=== PATIENT | female | born 1985 | race Two or more races ===

== ENCOUNTER 2020-06-06 13:26 | Outpatient (REF) | payer MEDICAID, SELFPAY | END 2020-06-06 13:27 | disposition home or self-care (01) | LOC: HO.LAB 13:26 | PROVIDERS: Visit Provider Internal Medicine | DX: Z20.828 Contact with and (suspected) exposure to other viral communicable diseases (principal) | CPT/HCPCS: U0003 ==

== ENCOUNTER 2020-08-05 11:47 | Emergency (ER) | payer MEDICAID, SELFPAY ==
[2020-08-05 12:09] VITALS: BP 116/73; PULSE 78; RESP 16; TEMP 36.8; O2SAT 97; BMI 60.2
--- NOTE | 2020-08-05 12:42 | ED_ITS ---
HPI - General Adult General Chief complaint: General Medical Stated complaint: headache, low extremity pain Time Seen by Provider: 08/05/20 12:41 History of Present Illness HPI narrative: Patient complains of body aches, mild headache, mild cough, mild runny nose mild fatigue for past 2 days and lives in a household with a family member who was positive for COVID, no shortness of breath no vomiting Related Data Home Medications Medication Instructions Recorded Confirmed No Known Home Meds 08/05/20 08/05/20 Previous Rx's Medication Instructions Recorded ibuprofen 600 mg PO Q6H PRN #20 tab 08/05/20 Allergies Allergy/AdvReac Type Severity Reaction Status Date / Time No Known Allergies Allergy Unverified 04/24/20 19:53 [No Known Allergies*] Review of Systems Review of Systems: Positive for headache body aches cough runny nose fatigue Negatives are weakness dizziness confusion neck pain, no chest pain no shortness of breath, no calf pain or swelling, no leg swelling, no urinary symptoms, no abdominal pain no nausea no vomiting no diarrhea, no skin rash Yes all other systems are reviewed and are negative [facility] Past Medical History Source: nursing notes reviewed Medical History (Updated 08/05/20 @ 12:49 by BAKARI Kilgore) No known health problems Social History Social History Advance Directives: No Advance Directives Information Provided: No Physical Exam Vital Signs: Vital Signs: Last Vital Signs Temp 98.2 F 08/05/20 12:09 Pulse 78 08/05/20 12:09 Resp 16 08/05/20 12:09 BP 116/73 08/05/20 12:09 Pulse Ox 97 08/05/20 12:09 Body Mass Index 60.2 General appearance no acute distress The neck is supple The chest is clear to auscultation bilaterally with full symmetric equal breath sounds, no respiratory distress The heart rate and rhythm regular, no murmurs The abdomen is soft and nontender Extremities there is no calf swelling or tenderness, there is no edema Skin no rash Neuro no focal deficit Course Course Course Narrative: COVID testing was done in well-appearing patient who is discharged home with warnings to wear mask as her symptoms are concerning for COVID Discharge Plan Discharge Clinical Impression: Acute viral syndrome Patient Disposition: Home, Self-Care Additional Instructions: Your symptoms are concerning for COVID infections so wear a mask and keep a distance from people We will call you with test results, but a negative test results does not guarantee you do not have COVID so if you have symptoms you still must assume you have COVID and wear the mask and keep a distance Return any time any worse condition or concerns Prescriptions: New ibuprofen 600 mg tablet 600 mg PO Q6H PRN (Reason: pain) Qty: 20 RF: 0 No Action No Known Home Meds RF: 0 Stand Alone Forms: Work/School Release Interventions: ED Discharge Assessment Last Done: 08/05/20 12:52
== END 2020-08-05 13:04 | disposition home or self-care (01) ==
PROVIDERS: Physician Assistant Medical; Emergency Provider Emergency Medicine Emergency Medical Services
DX: B34.9 Viral infection, unspecified (principal); R51.9 Headache, unspecified; M79.10 Myalgia, unspecified site; Z20.828 Contact with and (suspected) exposure to other viral communicable diseases
CPT/HCPCS: 99283; U0003

== ENCOUNTER 2020-08-27 11:00 | Outpatient (REF) | payer MEDICAID, SELFPAY | END 2020-08-27 11:01 | disposition home or self-care (01) | LOC: HO.LAB 11:00 | PROVIDERS: Visit Provider Internal Medicine | DX: Z20.822 Contact with and (suspected) exposure to COVID-19 (principal) | CPT/HCPCS: 36415; C9803; U0003 ==

== ENCOUNTER 2021-01-20 09:08 | Emergency (ER) | payer MEDICAID, SELFPAY ==
[2021-01-20 09:40] VITALS: PULSE 97; RESP 18; TEMP 36.6; O2SAT 99; BMI 22.4
[2021-01-20 10:01] VITALS: BP 115/72; PULSE 79; TEMP 36.8; O2SAT 98
[2021-01-20] MEDS: 0.9 % Sodium Chloride 1,000 ML 999 ML IVCONT ×2 (10:32→14:22)
[2021-01-20] MEDS: ondansetron HCL 4 MG/2 ML VIAL IVPUSH (10:32)
[2021-01-20 10:34] LABS: MANUAL DIFF FLAG NO
[2021-01-20 10:35] LABS: White Blood Count 3.6 X10*3/uL (4.8-10.8)
[2021-01-20 10:36] LABS: Basophils Percent Auto 0.6 % (0-2); Hematocrit 37.5 % (37-47); Hemoglobin 12.7 g/dl (12.0-16.0); Lymphocytes Absolute Auto 0.7 X10*3/uL (1.2-4.9); Lymphocytes Percent Auto 18.2 % (20-40); Mean Corpuscular HGB Conc 33.9 g/dl (31.0-35.0); Mean Corpuscular Hemoglobin 30.5 pg (27.0-33.0); Mean Corpuscular Volume 90.1 fL (80-98); Mean Platelet Volume 11.1 fL (9.4-12.3); Monocytes Absolute Auto 0.4 X10*3/uL (0.1-1.2); Monocytes Percent Auto 9.7 % (2-11); Neutrophils Absolute Auto 2.6 X10*3/uL (2.0-8.3); Neutrophils Percent Auto 71.5 % (45-73); Platelet Count 199 X10*3/uL (160-400); Red Blood Count 4.16 X10*6/uL (4.20-5.50); Red Cell Distribution Width 13.2 % (11.0-16.0)
--- NOTE | 2021-01-20 10:42 | ED_ITS ---
HPI - Abdominal Pain General Chief Complaint: Abdominal Pain <BAKARI Guerrero - Last Filed: 01/20/21 15:26> Stated Complaint: Abdominal pain vomiting <BAKARI Guerrero - Last Filed: 01/20/21 15:26> Time Seen by Provider: 01/20/21 10:13 <BAKARI Guerrero Last Filed: 01/20/21 15:26> Source: patient <BAKARI Guerrero Last Filed: 01/20/21 15:26> Mode of arrival: ambulatory <BAKARI Guerrero Last Filed: 01/20/21 15:26> Limitations: no limitations <BAKARI Guerrero Last Filed: 01/20/21 15:26> History of Present Illness HPI narrative: 35 y/o otherwise healthy female presents to the ER with epigastric pain along with nausea and vomiting for the last 7 days. Her symptoms started after a night of heavy drinking last week. She has been vomiting since and cannot keep anything down. She states the pain is in her epigastric area and is burning in nature. It comes and goes and worse with vomiting. She last tried to eat yesterday and everything came up. She denies chance of . She denies diarrhea, constipation, fever or chills. She has had no sick contacts. No SOB or chest pain. No vaginal bleeding or discharge. <BAKARI Guerrero - Last Filed: 01/20/21 15:26> MD elicited complaint: abdominal pain and other (N/V) <BAKARI Guerrero Last Filed: 01/20/21 15:26> Pertinent past history: none <BAKARI Guerrero Last Filed: 01/20/21 15:26> Onset (ago): day(s) (6) <BAKARI Guerrero Last Filed: 01/20/21 15:26> Pain Consistency: intermittent <BAKARI Guerrero Last Filed: 01/20/21 15:26> Location: epigastric <BAKARI Guerrero Last Filed: 01/20/21 15:26> Severity: moderate <BAKARI Guerrero Last Filed: 01/20/21 15:26> Quality: dull and burning <BAKARI Guerrero Last Filed: 01/20/21 15:26> Radiation: none <BAKARI Guerrero Last Filed: 01/20/21 15:26> Migration to: no migration <BAKARI Guerrero Last Filed: 01/20/21 15:26> Exacerbating factors: eating <BAKARI Guerrero Last Filed: 01/20/21 15:26> Relieving factors: vomiting <BAKARI Guerrero Last Filed: 01/20/21 15:26> Associated symptoms: nausea <BAKARI Guerrero Last Filed: 01/20/21 15:26> Related Data Home Medications: Previous Rx's Medication Instructions Recorded ibuprofen 600 mg PO Q6H PRN #20 tab 08/05/20 ondansetron 4 mg PO TID PRN #8 tab 01/20/21 <BAKARI Guerrero Last Filed: 01/20/21 15:26> Allergies/Adverse Reactions: Allergies Allergy/AdvReac Type Severity Reaction Status Date / Time No Known Allergies Allergy Unverified 04/24/20 19:53 [No Known Allergies*] <BAKARI Guerrero Last Filed: 01/20/21 15:26> Review of Systems Review of Systems Constitutional: No Fever, No Chills ENT/Mouth: No sore throat, No Rhinorrhea, No Swallowing Difficulty Cardiovascular: No Chest Pain, No SOB, No Orthopnea, No Edema Respiratory: No Cough, No Sputum, No Wheezing, No dyspnea Gastrointestinal: + Nausea, + Vomiting, No Diarrhea, + abdominal Pain, No Hematochezia, No Melena Genitourinary: No Dysuria, No Urinary Frequency, No Hematuria Musculoskeletal: No joint pain, No Myalgias Skin: No Skin Lesions, No rash Neuro: + Weakness, No Numbness, No Dizziness, + Headache Psych: No Anxiety/Panic, No Depression Heme/Lymph: No Bruising, No Lymphadenopathy Endocrine: No Polyuria, No Polydipsia <BAKARI Guerrero Last Filed: 01/20/21 15:26> Physical Exam Vital Signs: Vital Signs: Last Vital Signs Temp 98.3 F 01/20/21 10:01 Pulse 88 01/20/21 14:26 Resp 18 01/20/21 09:40 BP 113/68 01/20/21 14:26 Pulse Ox 99 01/20/21 14:26 Body Mass Index 22.4 Appearance: Alert. Oriented X3. No acute distress. Eyes: Pupils equal, round and reactive to light. ENT: Pharynx normal. Neck: Normal inspection. Neck supple. CVS: Normal heart rate and rhythm. Pulses normal. Respiratory: No respiratory distress. Breath sounds normal. Abdomen: Soft with mild epigsatric tenderness, nondistended. +BS x4 Skin: Skin warm and dry. Normal skin color. Normal skin turgor. No rashes. Extremities: No lower extremity edema. Neuro: Oriented X 3. No motor deficit. No sensory deficit. <BAKARI Guerrero - Last Filed: 01/20/21 15:26> Vital Signs: Last Vital Signs Temp 98.3 F 01/20/21 10:01 Pulse 88 01/20/21 14:26 Resp 18 01/20/21 09:40 BP 113/68 01/20/21 14:26 Pulse Ox 99 01/20/21 14:26 Body Mass Index 22.4 <Rajendra Hopkins MD - Last Filed: 02/28/21 08:45> Course Course Course Narrative: 35 y/o female presenting with N/V x1 week with epigastric burning pain. Will get lab workup and test. IVF and Zofran ordered. Patieng appears well, non-toxic. VS are normal. <BAKARI Guerrero - Last Filed: 01/20/21 15:26> I have reviewed the chart <Rajendra Hopkins MD - Last Filed: 02/28/21 08:45> Reevaluation(s) Reevaluation #1: Labs are unremarkable. No leukocytosis, no electrolyte abnormality. COVID negative. Feels better with IVF and Zofran. Given PO trial. <BAKARI Guerrero - Last Filed: 01/20/21 15:26> Reevaluation #2: Patient reports vomiting after she ate a cracker. Additional IVF and Reglan ordered. Will reassess. <BAKARI Guerrero - Last Filed: 01/20/21 15:26> Reevaluation #3: Utox + for marijuana which is likely contributing to persistent vomiting. Feels much better after reglan. She is stable for d/c home. Counseled on stopping smoking marijuana. <BAKARI Guerrero - Last Filed: 01/20/21 15:26> MDM - Abdominal Pain Lab Data Result diagrams: : 01/20/21 10:29 01/20/21 10:29 <BAKARI Guerrero - Last Filed: 01/20/21 15:26> Labs: Lab Results 01/20/21 01/20/21 01/20/21 Range/Units 10:29 10:29 10:29 WBC 3.6 L (4.8-10.8) X10*3/uL RBC 4.16 L (4.20-5.50) X10*6/uL Hgb 12.7 (12.0-16.0) g/dl Hct 37.5 (37-47) % MCV 90.1 (80-98) fL MCH 30.5 (27.0-33.0) pg MCHC 33.9 (31.0-35.0) g/dl RDW 13.2 (11.0-16.0) % Plt Count 199 (160-400) X10*3/uL MPV 11.1 (9.4-12.3) fL Immature Gran % (Auto) 0.0 (0.0-0.4) % Neut % (Auto) 71.5 (45-73) % Lymph % (Auto) 18.2 L (20-40) % [place] % (Auto) 9.7 (2-11) % Eos % (Auto) 0.0 (0-4) % Baso % (Auto) 0.6 (0-2) % Lymph # (Auto) 0.7 L (1.2-4.9) X10*3/uL [place] # (Auto) 0.4 (0.1-1.2) X10*3/uL Eos # (Auto) 0.0 (0.0-0.4) X10*3/uL Baso # (Auto) 0.0 (0.0-0.2) X10*3/uL Abs Immat Gran (auto) 0.00 (0.00-0.03) X10*3/uL Absolute Neuts (auto) 2.6 (2.0-8.3) X10*3/uL Absolute Nucleated RBC 0.000 (0.0-0.012) X10*3/uL Nucleated RBC % (auto) 0.0 (0.0-0.2) /100WBC Sodium 137 (135-145) mmol/L Potassium 3.7 (3.3-5.1) mmol/L Chloride 102 (96-108) mmol/L Carbon Dioxide 24 (22-29) mmol/L Anion Gap 15 (12-20) BUN 9 (9-16) mg/dL Creatinine 0.72 (0.5-1.4) mg/dL Estim Creat Clear Calc 76.8 Estimated GFR > 60 Random Glucose 92 (60-115) mg/dL Calcium 9.2 (8.4-10.2) mg/dL Magnesium 1.8 (1.6-2.6) mg/dL Total Bilirubin 0.7 (0.0-1.0) mg/dL Direct Bilirubin 0.2 (0.0-0.5) mg/dL AST 14 (5-31) U/L ALT 16 (0-31) U/L Alkaline Phosphatase 43 (39-117) U/L Total Protein 6.9 (6.5-8.0) g/dL Albumin 4.3 (3.5-5.0) g/dL Lipase 11 (8-78) U/L Beta HCG, Quant < 2 mIU/mL Urine Color Urine Appearance Urine pH (5.0-8.0) Ur Specific [place] (1.005-1.025) Urine Protein (NEG-TRACE) MG/DL Urine Glucose (UA) (NEG) MG/DL Urine Ketones (NEG) MG/DL Urine Blood (NEG) Urine Nitrite (NEG) Ur Leukocyte Esterase (NEG) Urine RBC (0) /HPF Urine WBC (0-4) /HPF Ur Squamous Epith Cells /LPF Urine Bacteria /LPF Urine Mucus /LPF Urine Test (NEGATIVE) Urine Opiates Screen (Not Detect) Ur Barbiturates Screen (Not Detect) Ur Phencyclidine Scrn (Not Detect) Ur Amphetamines Screen (Not Detect) U Benzodiazepines Scrn (Not Detect) Urine Cocaine Screen (Not Detect) U Marijuana (THC) Screen (Not Detect) COVID-19 ([facility]) Negative (Negative) COVID-19 Clin Com See Note 01/20/21 01/20/21 01/20/21 Range/Units 12:55 12:55 12:55 WBC (4.8-10.8) X10*3/uL RBC (4.20-5.50) X10*6/uL Hgb (12.0-16.0) g/dl Hct (37-47) % MCV (80-98) fL MCH (27.0-33.0) pg MCHC (31.0-35.0) g/dl RDW (11.0-16.0) % Plt Count (160-400) X10*3/uL MPV (9.4-12.3) fL Immature Gran % (Auto) (0.0-0.4) % Neut % (Auto) (45-73) % Lymph % (Auto) (20-40) % [place] % (Auto) (2-11) % Eos % (Auto) (0-4) % Baso % (Auto) (0-2) % Lymph # (Auto) (1.2-4.9) X10*3/uL [place] # (Auto) (0.1-1.2) X10*3/uL Eos # (Auto) (0.0-0.4) X10*3/uL Baso # (Auto) (0.0-0.2) X10*3/uL Abs Immat Gran (auto) (0.00-0.03) X10*3/uL Absolute Neuts (auto) (2.0-8.3) X10*3/uL Absolute Nucleated RBC (0.0-0.012) X10*3/uL Nucleated RBC % (auto) (0.0-0.2) /100WBC Sodium (135-145) mmol/L Potassium (3.3-5.1) mmol/L Chloride (96-108) mmol/L Carbon Dioxide (22-29) mmol/L Anion Gap (12-20) BUN (9-16) mg/dL Creatinine (0.5-1.4) mg/dL Estim Creat Clear Calc Estimated GFR Random Glucose (60-115) mg/dL Calcium (8.4-10.2) mg/dL Magnesium (1.6-2.6) mg/dL Total Bilirubin (0.0-1.0) mg/dL Direct Bilirubin (0.0-0.5) mg/dL AST (5-31) U/L ALT (0-31) U/L Alkaline Phosphatase (39-117) U/L Total Protein (6.5-8.0) g/dL Albumin (3.5-5.0) g/dL Lipase (8-78) U/L Beta HCG, Quant mIU/mL Urine Color YELLOW Urine Appearance CLOUDY Urine pH 6.0 (5.0-8.0) Ur Specific [place] >= 1.030 H (1.005-1.025) Urine Protein TRACE (NEG-TRACE) MG/DL Urine Glucose (UA) NEG (NEG) MG/DL Urine Ketones >=80 (NEG) MG/DL Urine Blood NEG (NEG) Urine Nitrite NEG (NEG) Ur Leukocyte Esterase TRACE H (NEG) Urine RBC 0 (0) /HPF Urine WBC 1-4 (0-4) /HPF Ur Squamous Epith Cells 2+ /LPF Urine Bacteria 1+ /LPF Urine Mucus 2+ /LPF Urine Test NEGATIVE (NEGATIVE) Urine Opiates Screen Not Detected (Not Detect) Ur Barbiturates Screen Not Detected (Not Detect) Ur Phencyclidine Scrn Not Detected (Not Detect) Ur Amphetamines Screen Not Detected (Not Detect) U Benzodiazepines Scrn Not Detected (Not Detect) Urine Cocaine Screen Not Detected (Not Detect) U Marijuana (THC) Screen POSITIVE H (Not Detect) COVID-19 ([facility]) (Negative) COVID-19 Clin Com <BAKARI Guerrero - Last Filed: 01/20/21 15:26> Lab Results 01/20/21 01/20/21 01/20/21 Range/Units 10:29 10:29 10:29 WBC 3.6 L (4.8-10.8) X10*3/uL RBC 4.16 L (4.20-5.50) X10*6/uL Hgb 12.7 (12.0-16.0) g/dl Hct 37.5 (37-47) % MCV 90.1 (80-98) fL MCH 30.5 (27.0-33.0) pg MCHC 33.9 (31.0-35.0) g/dl RDW 13.2 (11.0-16.0) % Plt Count 199 (160-400) X10*3/uL MPV 11.1 (9.4-12.3) fL Immature Gran % (Auto) 0.0 (0.0-0.4) % Neut % (Auto) 71.5 (45-73) % Lymph % (Auto) 18.2 L (20-40) % [place] % (Auto) 9.7 (2-11) % Eos % (Auto) 0.0 (0-4) % Baso % (Auto) 0.6 (0-2) % Lymph # (Auto) 0.7 L (1.2-4.9) X10*3/uL [place] # (Auto) 0.4 (0.1-1.2) X10*3/uL Eos # (Auto) 0.0 (0.0-0.4) X10*3/uL Baso # (Auto) 0.0 (0.0-0.2) X10*3/uL Abs Immat Gran (auto) 0.00 (0.00-0.03) X10*3/uL Absolute Neuts (auto) 2.6 (2.0-8.3) X10*3/uL Absolute Nucleated RBC 0.000 (0.0-0.012) X10*3/uL Nucleated RBC % (auto) 0.0 (0.0-0.2) /100WBC Sodium 137 (135-145) mmol/L Potassium 3.7 (3.3-5.1) mmol/L Chloride 102 (96-108) mmol/L Carbon Dioxide 24 (22-29) mmol/L Anion Gap 15 (12-20) BUN 9 (9-16) mg/dL Creatinine 0.72 (0.5-1.4) mg/dL Estim Creat Clear Calc 76.8 Estimated GFR > 60 Random Glucose 92 (60-115) mg/dL Calcium 9.2 (8.4-10.2) mg/dL Magnesium 1.8 (1.6-2.6) mg/dL Total Bilirubin 0.7 (0.0-1.0) mg/dL Direct Bilirubin 0.2 (0.0-0.5) mg/dL AST 14 (5-31) U/L ALT 16 (0-31) U/L Alkaline Phosphatase 43 (39-117) U/L Total Protein 6.9 (6.5-8.0) g/dL Albumin 4.3 (3.5-5.0) g/dL Lipase 11 (8-78) U/L Beta HCG, Quant < 2 mIU/mL Urine Color Urine Appearance Urine pH (5.0-8.0) Ur Specific [place] (1.005-1.025) Urine Protein (NEG-TRACE) MG/DL Urine Glucose (UA) (NEG) MG/DL Urine Ketones (NEG) MG/DL Urine Blood (NEG) Urine Nitrite (NEG) Ur Leukocyte Esterase (NEG) Urine RBC (0) /HPF Urine WBC (0-4) /HPF Ur Squamous Epith Cells /LPF Urine Bacteria /LPF Urine Mucus /LPF Urine Test (NEGATIVE) Urine Opiates Screen (Not Detect) Ur Barbiturates Screen (Not Detect) Ur Phencyclidine Scrn (Not Detect) Ur Amphetamines Screen (Not Detect) U Benzodiazepines Scrn (Not Detect) Urine Cocaine Screen (Not Detect) U Marijuana (THC) Screen (Not Detect) COVID-19 ([facility]) Negative (Negative) COVID-19 Clin Com See Note 01/20/21 01/20/21 01/20/21 Range/Units 12:55 12:55 12:55 WBC (4.8-10.8) X10*3/uL RBC (4.20-5.50) X10*6/uL Hgb (12.0-16.0) g/dl Hct (37-47) % MCV (80-98) fL MCH (27.0-33.0) pg MCHC (31.0-35.0) g/dl RDW (11.0-16.0) % Plt Count (160-400) X10*3/uL MPV (9.4-12.3) fL Immature Gran % (Auto) (0.0-0.4) % Neut % (Auto) (45-73) % Lymph % (Auto) (20-40) % [place] % (Auto) (2-11) % Eos % (Auto) (0-4) % Baso % (Auto) (0-2) % Lymph # (Auto) (1.2-4.9) X10*3/uL [place] # (Auto) (0.1-1.2) X10*3/uL Eos # (Auto) (0.0-0.4) X10*3/uL Baso # (Auto) (0.0-0.2) X10*3/uL Abs Immat Gran (auto) (0.00-0.03) X10*3/uL Absolute Neuts (auto) (2.0-8.3) X10*3/uL Absolute Nucleated RBC (0.0-0.012) X10*3/uL Nucleated RBC % (auto) (0.0-0.2) /100WBC Sodium (135-145) mmol/L Potassium (3.3-5.1) mmol/L Chloride (96-108) mmol/L Carbon Dioxide (22-29) mmol/L Anion Gap (12-20) BUN (9-16) mg/dL Creatinine (0.5-1.4) mg/dL Estim Creat Clear Calc Estimated GFR Random Glucose (60-115) mg/dL Calcium (8.4-10.2) mg/dL Magnesium (1.6-2.6) mg/dL Total Bilirubin (0.0-1.0) mg/dL Direct Bilirubin (0.0-0.5) mg/dL AST (5-31) U/L ALT (0-31) U/L Alkaline Phosphatase (39-117) U/L Total Protein (6.5-8.0) g/dL Albumin (3.5-5.0) g/dL Lipase (8-78) U/L Beta HCG, Quant mIU/mL Urine Color YELLOW Urine Appearance CLOUDY Urine pH 6.0 (5.0-8.0) Ur Specific [place] >= 1.030 H (1.005-1.025) Urine Protein TRACE (NEG-TRACE) MG/DL Urine Glucose (UA) NEG (NEG) MG/DL Urine Ketones >=80 (NEG) MG/DL Urine Blood NEG (NEG) Urine Nitrite NEG (NEG) Ur Leukocyte Esterase TRACE H (NEG) Urine RBC 0 (0) /HPF Urine WBC 1-4 (0-4) /HPF Ur Squamous Epith Cells 2+ /LPF Urine Bacteria 1+ /LPF Urine Mucus 2+ /LPF Urine Test NEGATIVE (NEGATIVE) Urine Opiates Screen Not Detected (Not Detect) Ur Barbiturates Screen Not Detected (Not Detect) Ur Phencyclidine Scrn Not Detected (Not Detect) Ur Amphetamines Screen Not Detected (Not Detect) U Benzodiazepines Scrn Not Detected (Not Detect) Urine Cocaine Screen Not Detected (Not Detect) U Marijuana (THC) Screen POSITIVE H (Not Detect) COVID-19 ([facility]) (Negative) COVID-19 Clin Com <Rajendra Hopkins MD - Last Filed: 02/28/21 08:45> Discharge Plan Discharge Clinical Impression: Nausea & vomiting <BAKARI Guererro - Last Filed: 01/20/21 15:26> Patient Disposition: Home, Self-Care <BAKARI Guerrero - Last Filed: 01/20/21 15:26> Instructions: Cyclic Vomiting Syndrome (ED) <BAKARI Guerrero - Last Filed: 01/20/21 15:26> Additional Instructions: DO NOT SMOKE MARIJUANA - THIS IS KNOWN TO BE A CAUSE OF SEVERE VOMITING Your lab workup today was normal. Your test was negative. Take the prescribed medication as needed every 6-8 hours for nausea. Do not drink any alcohol. Stya hydrated and stick to a bland diet while you are not feeling well. Follow up with your doctor this week. If you have worsening symptoms come back to the ER for further evaluation. NO FUME MARIHUANA - SE CONOCE QUE ESTO ES HARSHIL CAUSA DE V?RANDY JULIET Tu examen de laboratorio de hoy fue normal. Tu prueba de embarazo fue negativa. [place] el medicamento recetado seg?n sea necesario cada 6 a 8 horas para las n?useas. No sandhya alcohol. Stya hidratado y siga harshil dieta blanda mientras no se sienta azeb. Rashida un seguimiento con velez m?dico esta semana. Si los s?ntomas empeoran, regrese a la reva de emergencias para harshil evaluaci?n adicional. <BAKARI Guerrero - Last Filed: 01/20/21 15:26> Prescriptions: New ondansetron 4 mg tablet,disintegrating 4 mg PO TID PRN (Reason: nausea and vomiting) Qty: 8 RF: 0 No Action ibuprofen 600 mg tablet 600 mg PO Q6H PRN (Reason: pain) Qty: 20 RF: 0 <BAKARI Guerrero - Last Filed: 01/20/21 15:26> Interventions: ED Discharge Assessment Last Done: 01/20/21 15:28 <BAKARI Guerrero - Last Filed: 01/20/21 15:26> Discharge Date/Time: 01/20/21 15:30 <BAKARI Guerrero - Last Filed: 01/20/21 15:26> Print Language: Romansh <BAKARI Guerrero - Last Filed: 01/20/21 15:26> PMF Past Medical History Attestation statement: The following information was validated with the patient. <BAKARI Guerrero - Last Filed: 01/20/21 15:26> Medical History: Medical History No known health problems <BAKARI Guerrero - Last Filed: 01/20/21 15:26> Social History Social History: Social History Alcohol intake: current Advance Directives: No Advance Directives Information Provided: No Patient : No <BAKARI Guerrero - Last Filed: 01/20/21 15:26>
[2021-01-20 11:01] LABS: COVID-19 Test Negative (Negative); IDNOW Serial# 9DD0AD1C
[2021-01-20 11:03] LABS: Alanine Aminotransferase 16 U/L (0-31); Albumin Level 4.3 g/dL (3.5-5.0); Alkaline Phosphatase 43 U/L (39-117); Anion Gap 15 (12-20); Aspartate Amino Transferase 14 U/L (5-31); Bilirubin Direct 0.2 mg/dL (0.0-0.5); Bilirubin Total 0.7 mg/dL (0.0-1.0); Blood Urea Nitrogen 9 mg/dL (9-16); Calcium 9.2 mg/dL (8.4-10.2); Carbon Dioxide 24 mmol/L (22-29); Chloride 102 mmol/L (96-108); Creatinine Clr Calc Pharmacy 76.8; Estimated Glomerular Filt Rate > 60; Glucose Random 92 mg/dL (60-115); Lipase 11 U/L (8-78); Magnesium 1.8 mg/dL (1.6-2.6); Potassium 3.7 mmol/L (3.3-5.1); Sodium 137 mmol/L (135-145); Total Protein 6.9 g/dL (6.5-8.0)
[2021-01-20] MEDS: Lidocaine HCl Viscous 2 % 15 ML SOLUTION MUCOUS MEM (11:15)
[2021-01-20] MEDS: Omeprazole 40 MG CAPSULE.DR PO (11:15)
[2021-01-20] MEDS: Magnesium Hydrox/Alum Hydrox 30 ML ORAL.SUSP PO (11:15)
[2021-01-20 12:17] LABS: HCG Quantitative < 2 mIU/mL
[2021-01-20 13:07] LABS: Glucose Urine UA NEG (NEG); Leukocyte Esterase Urine TRACE (NEG); Nitrite Urine NEG (NEG); Specific Gravity - Urine >= 1.030 (1.005-1.025); UACC Culture Trigger YES; Urine Blood NEG (NEG); Urine Ketones >=80 MG/DL (NEG); Urine Protein TRACE MG/DL (NEG-TRACE)
[2021-01-20 13:09] LABS: Appearance Urine CLOUDY; Color Urine YELLOW
[2021-01-20 13:15] LABS: RBC Urine 0 /HPF (0)
[2021-01-20 13:16] LABS: Bacteria Urine 1+ /LPF; Mucus Urine 2+ /LPF; Squamous Epithelial Cell Urine 2+ /LPF
[2021-01-20] MEDS: Metoclopramide HCl 10 MG/2 ML VIAL IVPUSH (14:22)
[2021-01-20 14:26] VITALS: BP 113/68; PULSE 88; O2SAT 99
[2021-01-20 14:32] LABS: UPreg QC Valid YES; Urine Pregnancy NEGATIVE (NEGATIVE)
[2021-01-20 15:11] LABS: Amphetamine Screen Urine Not Detected (Not Detect); Barbiturates, Urine Not Detected (Not Detect); Benzodiazepines Screen Urine Not Detected (Not Detect); Cannabinoid Screen Urine POSITIVE (Not Detect); Cocaine Screen Urine Not Detected (Not Detect); Opiate Screen Urine Not Detected (Not Detect); Phencyclidine Screen Urine Not Detected (Not Detect)
== END 2021-01-20 15:30 | disposition home or self-care (01) ==
PROVIDERS: Physician Assistant; Emergency Provider Emergency Medicine
DX: R11.2 Nausea with vomiting, unspecified (principal); R10.13 Epigastric pain; F12.90 Cannabis use, unspecified, uncomplicated; Z20.822 Contact with and (suspected) exposure to COVID-19
CPT/HCPCS: 36415; 80048; 80076; 80307; 81001; 81003; 81025; 83690; 83735; 84702; 85025; 87086; 87635; 96361; 96374; 96375; 99284; J2405; J2765

== ENCOUNTER 2022-05-31 10:58 | Outpatient (REF) | payer MEDICAID, SELFPAY ==
--- NOTE | ~2022-05-31 | MM_ITS ---
EXAMINATION: MM DIAGNOSTIC DIGITAL BREAST TOMOSYNTHESIS, BILATERAL US TARGETED RIGHT BREAST CLINICAL INFORMATION: Patient feels lump/2 nodules right breast 6 o'clock position. The lifetime risk of breast cancer based on the Tyrer-Cuzick Model is 18%. COMPARISON: Mammography: None. TECHNIQUE: Digital breast tomosynthesis is performed in both the craniocaudal and mediolateral oblique views along with computer-aided detection (CAD). Synthesized 2D images are generated from the tomosynthesis. Additional spot magnification view of the right breast and 90-degree mediolateral view performed. Targeted right breast ultrasound. FINDINGS: The breasts are extremely dense, which lowers the sensitivity of mammography (ACR BI-RADS breast composition Category d). MAMMOGRAM: The breast parenchyma is extremely dense and nodular it is difficult to separate out 1 or 2 particular densities to correspond to the palpable region.There are noted to be some scattered and grouped calcifications about the inferior aspect of the right breast which appear to be related to the skin. The area was cleansed with repeat spot magnification view performed with persistence of calcifications. The calcifications have a generalized rounded appearance without any linear or branching forms. No suspicious left breast findings are identified. ULTRASOUND: Targeted right breast ultrasound demonstrated either 2 adjacent hypoechoic lesions with increased through-sound transmission and no internal vascularity versus a bilobed cystic structure. One portion measures approximately 5 x 4 mm in size with the second portion measuring approximately 4 x 3 mm in size and in length. The 2 together measure approximately 1.2 cm long. Recommend 6 month follow-up right breast mammogram and ultrasound for follow-up of the calcifications and cystic structures. Results are discussed with the patient at time of visit. MM/MM tomosynthesis diagnostic BI IMPRESSION: Right breast findings for 6-month follow-up examination as described. ASSESSMENT: BI-RADS 3: Probably benign. RECOMMENDATION: Diagnostic mammography in 6 months. This patient's information was entered into a reminder system with a target due date for their next mammogram.
== END 2022-05-31 10:59 | disposition home or self-care (01) ==
LOC: HO.MAMMO 10:58
PROVIDERS: PCP Registered Nurse; Visit Provider Registered Nurse
DX: N63.15 Unspecified lump in the right breast, overlapping quadrants (principal)
CPT/HCPCS: 76642; 77062; 77066